=== PATIENT | male | born 1960 | race Caucasian/White ===

== ENCOUNTER 2017-02-17 16:30 | Emergency (ER) | payer OTHER ==
[~2017-02-17] VITALS: Ht 172.7 cm; Wt 71.0 kg
[~2017-02-17 16:30] MED LIST: PRED20 PO; VITA10002 PO; VITATAB25 PO; ZINC30CA PO
[2017-02-17 16:37] VITALS: BP 146/110; PULSE 90; RESP 16; TEMP 99.2; O2SAT 98
== END 2017-02-17 18:13 | disposition left against medical advice (07) ==
LOC: PHED 16:30
DX: R10.9 Unspecified abdominal pain (principal); Z53.21 Procedure and treatment not carried out due to patient leaving prior to being seen by health care provider
CPT/HCPCS: 99281

== ENCOUNTER 2017-04-09 21:10 | Emergency (ER) | payer OTHER ==
[~2017-04-09] VITALS: Ht 172.7 cm; Wt 72.2 kg
[2017-04-09 21:16] VITALS: BP 161/109; PULSE 75; RESP 18; TEMP 97.9; O2SAT 97
[2017-04-09] MEDS ORDERED: VITA10002 PO (21:35)
[2017-04-09] MEDS ORDERED: VITA100064 PO (21:35)
[2017-04-09] MEDS ORDERED: PANTOPRAZOLE SOD 40 MG DELAYED RELEASE TAB PO ONE (21:45)
[2017-04-09] MEDS ORDERED: ALUMINUM/MAGNESIUM/SIMETH 30 ML CUP PO ONE (21:45)
--- NOTE | 2017-04-09 21:50 | PD ---
HPI Chief Complaint: Abdominal Pain Time Seen by Provider: 21:37 Travel History International Travel<30 days: No Contact w/Intl Traveler<30days: No Traveled to known affect area: No History of Present Illness HPI This 56-year-old male is complaining of lower abdominal pain. He has been having extensive GI workup recently. He has some elevation of his BNP to about 12 to 14. Is being followed serially. He apparently has a really large cyst in his liver. Most doctors and told him it is benign and there is nothing to do with a physician really recently told him that it is likely malignant. He has been seeing a local gastroenterologists as well as Dr. Will. In February he had lower abdominal pain and is treated for diverticulitis. He says the only thing the Augmentin for 5 days because he was feeling better. He has had upper and lower endoscopy recently. The upper endoscopy showed gastritis and duodenitis. The lower endoscopy showed a polyp that was removed. He says he been having some burning in his upper chest which is taken Tums and at times does seem to help. He is not aware of fever or chills. He called his GI doctor today and was told he should have his blood work and urine checked PFSH Past Medical History Anxiety: Yes Heart Rhythm Problems: Yes (BRADYCARDIA WITH PAC'S) Cardiovascular Problems: No COPD: Yes Diminished Hearing: No Gastrointestinal Disorders: Yes (COLITIS, IRRITABLE BOWEL, RECTAL BLEEDING, POLYPECTOMY: 2012, BENIGN) Headaches: Yes Heparin Induced Thrombocytopen: No Hypertension: Yes Musculoskeletal: No Neurologic: No Reproductive: No Respiratory: Yes (copd) Immunizations Current: Yes PNEUMOCCOCAL Vaccine (Year): 2 Past Surgical History Abdominal Surgery: Yes (ABDOMINAL HYDROCELE INFANT) Genitourinary Surgery: Yes (RIGHT TESTICULAR TORSION 1980) Other Surgery: Yes (TORTION/HYDROCELE) Social History Alcohol Use: No (RECOVERING ALCOHOLIC: 1984) Tobacco Use: Yes (11/23) Substance Use: No (RECOVERING ADDICT: 1984) Allergies-Medications (Allergen,Severity, Reaction): Coded Allergies: Erythromycin (Verified Adverse Reaction, Intermediate, ABD PAIN, 02/17/17) Reported Meds & Prescriptions Reported Meds & Active Scripts Active Reported Vitamin B-12 (Cyanocobalamin) 1,000 Mcg Tab 1,500 Mcg PO DAILY Vitamin D (Cholecalciferol) 1,000 Unit Tab 1,000 Units PO DAILY Review of Systems General / Constitutional: No: Fever, Chills Eyes: No: Diploplia, Blurred Vision HENT: No: Headaches, Vertigo Cardiovascular: No: Chest Pain or Discomfort, Palpitations Respiratory: No: Cough, Shortness of Breath Gastrointestinal: Positive: Abdominal Pain, No: Nausea, Vomiting, Diarrhea Genitourinary: No: Urgency, Frequency Musculoskeletal: No: Myalgias, Arthralgias Skin: No Rash, No Itching Neurologic: No: Weakness, Dizziness Psychiatric: Positive: Anxiety Hematologic/Lymphatic: No: Easy Bruising Physical Exam Narrative GENERAL: Well-developed male SKIN: Focused skin assessment warm/dry. HEAD: Atraumatic. Normocephalic. EYES: Pupils equal and round. No scleral icterus. No injection or drainage. ENT: No nasal bleeding or discharge. Mucous membranes pink and moist. NECK: Trachea midline. No JVD. CARDIOVASCULAR: Regular rate and rhythm. No murmur appreciated. RESPIRATORY: No accessory muscle use. Clear to auscultation. Breath sounds equal bilaterally. GASTROINTESTINAL: Abdomen soft, there is left lower quadrant tenderness without guarding or rigidity, nondistended. Hepatic and splenic margins not palpable. MUSCULOSKELETAL: No obvious deformities. No clubbing. No cyanosis. No edema. NEUROLOGICAL: Awake and alert. No obvious cranial nerve deficits. Motor grossly within normal limits. Normal speech. PSYCHIATRIC: Anxious mood and affect; insight and judgment normal. Data Data Last Documented VS Vital Signs Date Time Temp Pulse Resp B/P Pulse Ox O2 Delivery O2 Flow Rate FiO2 04/09/17 22:04 72 18 140/92 98 Room Air 04/09/17 21:16 97.9 Orders Complete Blood Count With Diff (04/09/17 21:37) Basic Metabolic Panel (Bmp) (04/09/17 21:37) Urinalysis - C+S If Indicated (04/09/17 21:37) Al-Mag Hy-Si 40-40-4 Mg/Ml Liq (Mag-Al P (04/09/17 21:45) Pantoprazole (Protonix) (04/09/17 21:45) Labs Laboratory Tests Test 04/09/17 21:47 White Blood Count 9.1 TH/MM3 Red Blood Count 4.74 MIL/MM3 Hemoglobin 14.1 GM/DL Hematocrit 42.1 % Mean Corpuscular Volume 88.7 FL Mean Corpuscular Hemoglobin 29.7 PG Mean Corpuscular Hemoglobin 33.4 % Concent Red Cell Distribution Width 13.0 % Platelet Count 225 TH/MM3 Mean Platelet Volume 7.8 FL Neutrophils (%) (Auto) 63.1 % Lymphocytes (%) (Auto) 27.3 % Monocytes (%) (Auto) 6.6 % Eosinophils (%) (Auto) 2.7 % Basophils (%) (Auto) 0.3 % Neutrophils # (Auto) 5.8 TH/MM3 Lymphocytes # (Auto) 2.5 TH/MM3 Monocytes # (Auto) 0.6 TH/MM3 Eosinophils # (Auto) 0.2 TH/MM3 Basophils # (Auto) 0.0 TH/MM3 CBC Comment DIFF FINAL Differential Comment Urine Color YELLOW Urine Turbidity CLEAR Urine pH 6.5 Urine Specific [place] 1.023 Urine Protein TRACE mg/dL Urine Glucose (UA) NEG mg/dL Urine Ketones TRACE mg/dL Urine Occult Blood NEG Urine Nitrite NEG Urine Bilirubin NEG Urine Leukocyte Esterase NEG Urine RBC 0-3 /hpf Microscopic Urinalysis Comment CULT NOT INDICATED Sodium Level 142 MEQ/L Potassium Level 3.5 MEQ/L Chloride Level 106 MEQ/L Carbon Dioxide Level 27.9 MEQ/L Anion Gap 8 MEQ/L Blood Urea Nitrogen 21 MG/DL Creatinine 1.10 MG/DL Estimat Glomerular Filtration 69 ML/MIN Rate Random Glucose 90 MG/DL Calcium Level 9.6 MG/DL [facility] Medical Decision Making Medical Screen Exam Complete: Yes Emergency Medical Condition: Yes Medical Record Reviewed: Yes Differential Diagnosis Differential includes GERD, diverticulitis, diverticulosis, Narrative Course White count is normal. Urine is negative. Patient be placed back on Augmentin for diverticulitis. Diagnosis Primary Impression: Acute diverticulitis Scripts Pantoprazole (Protonix)40 Mg Tab40 Mg PO DAILY #30 TAB Ref 0 Prov:Abelino Brown MD 04/09/17 Amoxicillin-Clavulanate (Augmentin)500-125 mg Exd429 Mg PO Q8H #30 TAB Ref 0 Prov:Abelino Brown MD 04/09/17 Disposition: 01 DISCHARGE HOME Condition: Stable Abelino Brown MD April 09, 2017 21:50
[2017-04-09 21:54] LABS: AUTOMATED NEUTROPHIL # 5.8 TH/MM3 (1.8-7.7); BASOPHIL % 0.3 % (0.0-2.0); EOSINOPHIL # 0.2 TH/MM3 (0-0.4); EOSINOPHIL % 2.7 % (0.0-4.0); HEMATOCRIT 42.1 % (39.0-51.0); HEMO FLAGS DIFF FINAL; LYMPH % 27.3 % (9.0-44.0); LYMPHOCYTE # 2.5 TH/MM3 (1.0-4.8); MEAN CELL VOLUME 88.7 FL (80.0-100.0); MEAN CORPUSCULAR HEMOGLOBIN 29.7 PG (27.0-34.0); MEAN CORPUSCULAR HGB CONC 33.4 % (32.0-36.0); MONO % 6.6 % (0.0-8.0); NEUT % 63.1 % (16.0-70.0); PLATELET COUNT 225 TH/MM3 (150-450); RED BLOOD COUNT 4.74 MIL/MM3 (4.50-5.90); WHITE BLOOD COUNT 9.1 TH/MM3 (4.0-11.0)
[2017-04-09 21:55] LABS: BLOOD, URINE NEG (NEG); GLUCOSE,URINE NEG (NEG); KETONE, URINE TRACE mg/dL (NEG); NITRITE,URINE NEG (NEG); PH, URINE 6.5 (5.0-8.5)
[2017-04-09 21:59] LABS: URINE COLOR YELLOW (YELLW/STRAW)
[2017-04-09 22:01] LABS: COMMENT (UR) CULT NOT INDICATED; CULTURE IF INDICATED CULT NOT INDICATED; RBC, URINE 0-3 /hpf (0-3)
[2017-04-09 22:04] VITALS: BP 140/92; PULSE 72; RESP 18; O2SAT 98
[2017-04-09 22:12] LABS: POTASSIUM 3.5 MEQ/L (3.5-5.1)
[2017-04-09 22:15] LABS: BICARBONATE 27.9 MEQ/L (21.0-32.0)
[2017-04-09] MEDS ORDERED: AUGM500T7 PO (22:27)
[2017-04-09] MEDS ORDERED: PROT40TA PO (22:28)
[2017-04-09] MEDS ORDERED: AMOXICILLIN/CLAVULANATE K 500 MG TAB PO ONE (22:30)
[2017-04-09] MEDS ORDERED: AUGM250S2 PO (22:38)
[2017-04-10] MEDS ORDERED: BENT20TA PO (08:15)
[2017-04-10] MEDS ORDERED: LEVS0.123 PO (10:04)
== END 2017-04-09 22:58 | disposition home or self-care (01) ==
LOC: PHED 21:10
DX: K57.92 Diverticulitis of intestine, part unspecified, without perforation or abscess without bleeding (principal); I10 Essential (primary) hypertension; F17.200 Nicotine dependence, unspecified, uncomplicated; Z86.79 Personal history of other diseases of the circulatory system; Z87.09 Personal history of other diseases of the respiratory system; Z87.19 Personal history of other diseases of the digestive system; Z86.59 Personal history of other mental and behavioral disorders
CPT/HCPCS: 80048; 81001; 85025; 99284

== ENCOUNTER 2017-04-10 08:01 | Emergency (ER) | payer OTHER ==
[~2017-04-10] VITALS: Ht 170.2 cm; Wt 68.5 kg
[~2017-04-10 08:01] MED LIST changes: +AUGM250S2 PO; +AUGM500T7 PO; -PRED20 PO; +PROT40TA PO; +VITA100064 PO; -VITATAB25 PO; -ZINC30CA PO
[2017-04-10 08:03] VITALS: BP 146/93; PULSE 93; RESP 17; TEMP 98.3; O2SAT 98
[2017-04-10] MEDS ORDERED: BENT20TA PO (08:15)
[2017-04-10] MEDS ORDERED: DICYCLOMINE HCL 20 MG/2 ML VIAL IM ONE (08:15)
[2017-04-10] MEDS ORDERED: DIATRIZOATE MEGLUM/DIATRIZOATE SOD 9 ML CUP ONE (08:18)
--- NOTE | 2017-04-10 08:20 | PD ---
HPI Chief Complaint: Abdominal Pain Time Seen by Provider: 08:10 Travel History International Travel<30 days: No Contact w/Intl Traveler<30days: No Traveled to known affect area: No History of Present Illness HPI Patient presents with complaints of left lower abdominal pain. Diagnosed last night as diverticulitis and started on Augmentin as this has worked for him in the past. Reports continued pain. States he talked to his home service consultant who recommended a CT. Patient reports for a CT. Reports a liver mass which is being followed by gastroenterology. Denies any previous abdominal surgeries. Reports loose stools without blood. Denies any nausea vomiting. Recovering alcoholic denies alcohol for 30 years. PFSH Past Medical History Anxiety: Yes Heart Rhythm Problems: Yes (BRADYCARDIA WITH PAC'S) Cardiovascular Problems: No COPD: Yes Diminished Hearing: No Gastrointestinal Disorders: Yes (COLITIS, IRRITABLE BOWEL, RECTAL BLEEDING, POLYPECTOMY: 2012, BENIGN) Headaches: Yes Heparin Induced Thrombocytopen: No Hypertension: Yes Musculoskeletal: No Neurologic: No Reproductive: No Respiratory: Yes (copd) Immunizations Current: Yes PNEUMOCCOCAL Vaccine (Year): 2 ?: Not Past Surgical History Abdominal Surgery: Yes (ABDOMINAL HYDROCELE ) Genitourinary Surgery: Yes (RIGHT TESTICULAR TORSION 1980) Other Surgery: Yes (TORTION/HYDROCELE) Social History Alcohol Use: No (RECOVERING ALCOHOLIC: 1984) Tobacco Use: Yes (11/23 PPD) Substance Use: No (RECOVERING ADDICT: 1984) Allergies-Medications (Allergen,Severity, Reaction): Coded Allergies: Erythromycin (Verified Adverse Reaction, Intermediate, ABD PAIN, 04/10/17) Reported Meds & Prescriptions Reported Meds & Active Scripts Active Augmentin Liq (Amoxicillin-Clavulanate Liq) 250-62.5 Mg/5 Ml Susp 500 Mg PO TID 10 Days 500 mg (10 mL). Substitute the 250-62.5 mg/5 ml susp. for the 500 mg tab for adults having difficulty swallowing. Protonix (Pantoprazole Sodium) 40 Mg Tab 40 Mg PO DAILY Augmentin (Amoxicillin-Clavulanate) 500-125 mg Tab 500 Mg PO Q8H Reported Bentyl (Dicyclomine HCl) 20 Mg Tab 20 Mg PO TID Vitamin B-12 (Cyanocobalamin) 1,000 Mcg Tab 1,500 Mcg PO DAILY Vitamin D (Cholecalciferol) 1,000 Unit Tab 1,000 Units PO DAILY Review of Systems General / Constitutional: No: Fever Eyes: No: Visual changes HENT: No: Headaches Cardiovascular: No: Chest Pain or Discomfort Respiratory: No: Shortness of Breath Gastrointestinal: Positive: Diarrhea, Abdominal Pain Genitourinary: No: Dysuria Musculoskeletal: No: Pain Skin: No Rash Neurologic: No: Weakness Psychiatric: No: Depression Endocrine: No: Polydipsia Hematologic/Lymphatic: No: Easy Bruising Physical Exam Narrative GENERAL: Well-nourished, well-developed patient. SKIN: Focused skin assessment warm/dry. HEAD: Normocephalic. EYES: No scleral icterus. No injection or drainage. NECK: Supple, trachea midline. No JVD or lymphadenopathy. CARDIOVASCULAR: Regular rate and rhythm without murmurs, gallops, or rubs. RESPIRATORY: Breath sounds equal bilaterally. No accessory muscle use. GASTROINTESTINAL: Abdomen soft, nondistended. No hepatosplenomegaly,Left lower inguinal scar noted tenderness and left lower quadrant MUSCULOSKELETAL: No cyanosis, or edema. BACK: Nontender without obvious deformity. No CVA tenderness. Data Data Last Documented VS Vital Signs Date Time Temp Pulse Resp B/P Pulse Ox O2 Delivery O2 Flow Rate FiO2 04/10/17 08:03 98.3 93 17 146/93 98 Orders Dicyclomine Inj (Bentyl Inj) (04/10/17 08:15) Ct Abd/Pel W/O Iv Contrast (04/10/17 ) Oral Contrast - Adult (04/10/17 08:13) Diatrizoate Liq ( Gastroview Liq) (04/10/17 08:18) [facility] Medical Decision Making Medical Screen Exam Complete: Yes Emergency Medical Condition: Yes Differential Diagnosis Colitis, diverticulitis, viral enteritis Narrative Course Last 72 hours Impressions Abdomen/Pelvis CT 04/10/17 0000 Signed Impressions: Service Date/Time: Monday, April 10, 2017 08:46 - CONCLUSION: 1. Acute diverticulitis of the sigmoid colon. No evidence of drainable abscess or free air. 2. Increase in size of right lobe hepatic mass. Features again suggests cyst. Leo Morton MD Assessment and plan discussed with patient at bedside, labs from last night reviewed. Patient declined any pain medication since he is recovering alcoholic. Reports inability to take Cipro or Flagyl. Prescription for Augmentin was provided last night. Diagnosis Primary Impression: Acute diverticulitis Patient Instructions: General Instructions Additional Instructions: Encouraged high-fiber bland BRAT diet. Encouraged good fluid intake. Continue with gastroenterology. Antibiotic as prescribed. Follow-up with PCP symptoms do not improve. Med/Other Pt SpecificInfo: Prescription(s) given Scripts Hyoscyamine (Levsin)0.125 Mg Tab0.125 Mg PO Q4H PRN (diarrhea) #20 TAB Ref 0 Prov:Robinson Banda MD 04/10/17 Disposition: 01 DISCHARGE HOME Condition: Good Robinson Banda MD April 10, 2017 08:20
--- NOTE | 2017-04-10 09:49 | RADHPO ---
EXAM DATE/TIME: 04/10/2017 08:46 [facility] COMPARISON: CT ABDOMEN & PELVIS W/O CONTRAST, November 06, 2013, 9:59. INDICATIONS : Bilateral lower quadrant pain and loose stools for two weeks, worsening for last several days. ORAL CONTRAST: Patient refused oral contrast. RADIATION DOSE: 8.57 CTDIvol (mGy) MEDICAL HISTORY : Diverticulitis. Hepatic cyst. SURGICAL HISTORY : None. ENCOUNTER: Initial ACUITY: 2 weeks PAIN SCALE: 8/10 LOCATION: Bilateral lower quadrant TECHNIQUE: Volumetric scanning of the abdomen and pelvis was performed. Using automated exposure control and ad justment of the mA and/or kV according to patient size, radiation dose was kept as low as reasonably achievable to obtain optimal diagnostic quality images. FINDINGS: LOWER LUNGS: The visualized lower lungs are clear. LIVER: 11.1 cm mass in the posterior right lobe of the liver with features again suggesting a cyst. It hasn' t increased in size from 8.3 cm on prior study of 2012. SPLEEN: Normal size without lesion. PANCREAS: Within normal limits. KIDNEYS: Normal in size and shape. There is no mass, stone, or hydronephrosis. ADRENAL GLANDS: Within normal limits. VASCULAR: There is no aortic aneurysm. BOWEL/MESENTERY: Numerous colonic diverticula are seen. Stranding and hazy opacity as well as wall thickening is seen at the proximal sigmoid colon in the left lower quadrant indicating acute diverticulitis. No evidence of drainable abscess or free air. ABDOMINAL WALL: Within normal limits. RETROPERITONEUM: There is no lymphadenopathy. BLADDER: No wall thickening or mass. REPRODUCTIVE: Within normal limits. INGUINAL: There is no lymphadenopathy or hernia. MUSCULOSKELETAL: Within normal limits for patient age. CONCLUSION: 1. Acute diverticulitis of the sigmoid colon. No evidence of drainable abscess or free air. 2. Increase in size of right lobe hepatic mass. Features again suggests cyst. Leo Morton MD on April 10, 2017 at 9:43 Board Certified Radiologist. This report was verified electronically.
[2017-04-10] MEDS ORDERED: LEVS0.123 PO (10:04)
== END 2017-04-10 10:24 | disposition home or self-care (01) ==
LOC: PHED 08:01
DX: K57.92 Diverticulitis of intestine, part unspecified, without perforation or abscess without bleeding (principal); R00.1 Bradycardia, unspecified; F41.9 Anxiety disorder, unspecified; F17.210 Nicotine dependence, cigarettes, uncomplicated; F19.21 Other psychoactive substance dependence, in remission; J44.9 Chronic obstructive pulmonary disease, unspecified; I10 Essential (primary) hypertension; F10.21 Alcohol dependence, in remission
CPT/HCPCS: 74176; Q9963

== ENCOUNTER 2017-09-13 19:44 | Emergency (ER) | payer SELFPAY ==
[~2017-09-13] VITALS: Ht 170.2 cm; Wt 72.9 kg
[~2017-09-13 19:44] MED LIST changes: +BENT20TA PO; +LEVS0.123 PO
[2017-09-13 19:52] VITALS: BP 175/98; PULSE 76; RESP 16; TEMP 98.5; O2SAT 98
[2017-09-13] MEDS ORDERED: CLON.5 PO (20:59)
[2017-09-13 21:00] VITALS: BP 157/100; PULSE 62; RESP 18; O2SAT 98
--- NOTE | 2017-09-13 21:05 | PD ---
HPI Chief Complaint: Dizziness Time Seen by Provider: 20:53 Travel History International Travel<30 days: No Contact w/Intl Traveler<30days: No Traveled to known affect area: No History of Present Illness HPI 56-year-old male with history of COPD here for evaluation of generalized fatigue , an episode of tachycardia/lightheadedness/dizziness. The patient reports fatigue over the last couple of months. He states that while driving today he felt as though his heart was racing. He has a pulse oximeter and he checked his heart rate with it and noticed it was 130. He then reports that he began to panic and was able to flag down one of our EVACs who checked his vital signs and performed a rhythm strip. The patient denies fevers or recent illness. He denies having chest pain. No history of DVT or PE. Currently he just feels tired. PFSH Past Medical History Anxiety: Yes Heart Rhythm Problems: Yes (BRADYCARDIA WITH PAC'S) Cardiovascular Problems: No COPD: Yes Diminished Hearing: No Gastrointestinal Disorders: Yes (COLITIS, IRRITABLE BOWEL, RECTAL BLEEDING, POLYPECTOMY: 2012, BENIGN) Headaches: Yes Heparin Induced Thrombocytopen: No Hypertension: Yes Musculoskeletal: No Neurologic: No Reproductive: No Respiratory: Yes (copd) Immunizations Current: Yes PNEUMOCCOCAL Vaccine (Year): 2 Past Surgical History Abdominal Surgery: Yes (ABDOMINAL HYDROCELE ) Genitourinary Surgery: Yes (RIGHT TESTICULAR TORSION 1980) Other Surgery: Yes (TORTION/HYDROCELE) Social History Alcohol Use: No (RECOVERING ALCOHOLIC: 1984) Tobacco Use: Yes (2 ) Substance Use: No (RECOVERING ADDICT: 1984) Allergies-Medications (Allergen,Severity, Reaction): Coded Allergies: erythromycin base (Unverified Adverse Reaction, Intermediate, ABD PAIN, ) Reported Meds & Prescriptions Reported Meds & Active Scripts Active Reported Klonopin (Clonazepam) 0.5 Mg Tab 0.5 Mg PO TID Review of Systems Except as stated in HPI: all other systems reviewed are Neg Physical Exam Narrative GENERAL: Well-developed, well-nourished, comfortable, no apparent distress. SKIN: Focused skin assessment warm/dry. No pallor. HEAD: Atraumatic. Normocephalic. EYES: Pupils equal and round. No scleral icterus. No injection or drainage. ENT: Mucous membranes pink and moist. NECK: Trachea midline. No JVD. CARDIOVASCULAR: Regular rate and rhythm. RESPIRATORY: No accessory muscle use. Clear to auscultation. Breath sounds equal bilaterally. GASTROINTESTINAL: Abdomen soft, non-tender, nondistended. MUSCULOSKELETAL: No obvious deformities. No clubbing. No cyanosis. NEUROLOGICAL: Awake and alert. No obvious cranial nerve deficits. Motor grossly within normal limits. Normal speech. PSYCHIATRIC: Appropriate mood and affect; insight and judgment normal. Data Data Last Documented VS Vital Signs Date Time Temp Pulse Resp B/P (MAP) Pulse Ox O2 Delivery O2 Flow Rate FiO2 09/13/17 21:07 98 09/13/17 21:00 62 18 Room Air 09/13/17 19:52 98.5 Orders Orders Complete Blood Count With Diff (09/13/17:02) Comprehensive Metabolic Panel (09/13/17:) Urinalysis - C+S If Indicated (09/13/17 21:) Sodium Chloride 0.9% Flush (Ns Flush) (09/13/17 21:15) Electrocardiogram (09/13/17:) Thyroid Stimulating Hormone (09/13/17 21:) MDM Medical Decision Making Medical Screen Exam Complete: Yes Emergency Medical Condition: Yes Medical Record Reviewed: Yes Interpretation(s) EKG: Sinus, rate 58, normal axis, moderate intraventricular conduction delay, no acute ischemic abnormality, unchanged from prior. Differential Diagnosis Palpitations, sinus tachycardia, anemia, metabolic abnormality, panic attack Narrative Course Vital signs show heart rate 62, blood pressure 157/100, pulse ox 98% on room air , oral temp of 98.5F. 10:00 PM: The patient decides he does not want to have any blood work because he is afraid of being charged. He states he is feeling a lot better and will follow up with his primary care physician when his insurance kicks back in on September 22. His symptoms sound like a panic attack, however he understands that it could be something else and I am unable to give him a diagnosis without performing further testing. He was informed on when to return to the emergency department. He verbalizes understanding and agreement with plan. Diagnosis Primary Impression: Tachycardia Referrals: Primary Care Physician 3 days Additional Instructions: Follow-up with a primary care physician this week. Return to the emergency department for worsening symptoms or any other concerns. Disposition: 01 DISCHARGE HOME Condition: Stable Carvajal,Geovany N MD Sep 13, 2017 21:05
[2017-09-13 21:07] VITALS: O2SAT 98
[2017-09-13] MEDS ORDERED: SODIUM CHLORIDE 0.9% FLUSH 10 ML FLUSH IV FLUSH PRN (21:15)
[2017-09-13 22:16] VITALS: BP 145/89; PULSE 66; RESP 18; O2SAT 97
--- NOTE | 2017-09-15 21:28 | EKG ---
Date Performed: 09/13/2017 Time Performed: 21:07:56 PTAGE: 56 years EKG: SINUS BRADYCARDIA BORDERLINE LEFT AXIS DEVIATION MODERATE INTRAVENTRICULAR CONDUCTION DELAY BORDERLINE ECG PREVIOUS TRACING : 09/04/2016 00.55 Compared to prior tracing no significant change DOCTOR: Tee Samano Interpretating Date/Time 09/15/2017 21:26:57
== END 2017-09-13 22:18 | disposition home or self-care (01) ==
LOC: PHED 19:44
DX: R00.0 Tachycardia, unspecified (principal); R53.83 Other fatigue; R42 Dizziness and giddiness; R94.31 Abnormal electrocardiogram [ECG] [EKG]; I10 Essential (primary) hypertension; F17.200 Nicotine dependence, unspecified, uncomplicated; Z86.59 Personal history of other mental and behavioral disorders; Z86.79 Personal history of other diseases of the circulatory system; Z87.09 Personal history of other diseases of the respiratory system; Z87.19 Personal history of other diseases of the digestive system
CPT/HCPCS: 93005; 99283

== ENCOUNTER 2018-04-20 08:14 | Emergency (ER) | payer OTHER ==
[~2018-04-20] VITALS: Ht 170.2 cm; Wt 72.0 kg
[~2018-04-20 08:14] MED LIST changes: -AUGM250S2 PO; -AUGM500T7 PO; -BENT20TA PO; +CLON.5 PO; -LEVS0.123 PO; -PROT40TA PO; -VITA10002 PO; -VITA100064 PO
[2018-04-20 08:17] VITALS: BP 160/95; PULSE 88; RESP 16; TEMP 98.6; O2SAT 97
--- NOTE | 2018-04-20 08:39 | PD ---
HPI Chief Complaint: Abdominal Pain Time Seen by Provider: 08:38 Travel History International Travel<30 days: No Contact w/Intl Traveler<30days: No Traveled to known affect area: No History of Present Illness HPI 57-year-old male came to the emergency room with history of lower abdominal pain that is cramping and spasming for past 2 days. Patient says he does have some discomfort for past 3-4 weeks but for past 2 days it got worse. He has history of diverticulitis and things he might be having another episode of it. Patient returned from a cruise on March 21 and 4-5 days after that the symptoms started. Currently he looks quite uncomfortable. Vital signs otherwise stable. He has GI specialist Dr. Thorpe that he sees and he went to see her 4-5 days ago but at that time his symptoms had subsided and hence nothing much was done about it. He has been nauseous but no vomiting. He has had diarrhea as well. [facility] Past Medical History Narrative Medical List of his past medical, surgical, social and family history is reviewed from the nursing note. Arthritis: No Asthma: No Autoimmune Disease: No Blood Disorders: No Anxiety: Yes Heart Rhythm Problems: Yes (BRADYCARDIA WITH PAC'S, RBBB) Cancer: No Cardiac Catheterization: No Cardiovascular Problems: No High Cholesterol: No Chemotherapy: No Chest Pain: No Congestive Heart Failure: No COPD: Yes Cerebrovascular Accident: No Diabetes: No Diminished Hearing: No Gastrointestinal Disorders: Yes (COLITIS, IRRITABLE BOWEL, RECTAL BLEEDING, POLYPECTOMY: 2013, BENIGN, UC) GERD: No Glaucoma: No Genitourinary: No Headaches: Yes Hepatitis: No Hiatal Hernia: No Heparin Induced Thrombocytopen: No Hypertension: Yes Kidney Stones: No Musculoskeletal: No Neurologic: No Psychiatric: No Reproductive: No Respiratory: Yes (copd) Immunizations Current: Yes Myocardial Infarction: No Radiation Therapy: No Renal Failure: No Seizures: No Sleep Apnea: No Thyroid Disease: No Ulcer: No Tetanus Vaccination: < 5 Years Influenza Vaccination: Yes PNEUMOCCOCAL Vaccine (Year): 2 Past Surgical History Abdominal Surgery: Yes (ABDOMINAL HYDROCELE INFANT) AICD: No Coronary Artery Bypass Graft: No Genitourinary Surgery: Yes (RIGHT TESTICULAR TORSION 1980) Pacemaker: No Thoracic Surgery: No Other Surgery: Yes (TORTION/HYDROCELE) Social History Alcohol Use: No (RECOVERING ALCOHOLIC: 1984) Tobacco Use: Yes (1/2 PPD) Substance Use: No (RECOVERING ADDICT: 1984) Allergies-Medications (Allergen,Severity, Reaction): Coded Allergies: erythromycin base (Unverified Adverse Reaction, Intermediate, ABD PAIN, ) Uncoded Allergies: no narcotics (Adverse Reaction, Unknown, 04/20/18) states recovery Comments List of his allergies reviewed from the nursing note. Reported Meds & Prescriptions Reported Meds & Active Scripts Active Augmentin Liq (Amoxicillin-Clavulanate Liq) 250-62.5 Mg/5 Ml Susp 500 Mg PO BID 10 Days 500 mg (10 mL). Substitute the 250-62.5 mg/5 ml susp. for the 500 mg tab for adults having difficulty swallowing. Flagyl (Metronidazole) 250 Mg Tab 250 Mg PO TID 10 Days Ciprofloxacin (Ciprofloxacin HCl) 500 Mg Tab 500 Mg PO BID 10 Days Narrative Medication List of his home medications reviewed from the nursing note. Review of Systems Except as stated in HPI: all other systems reviewed are Neg Gastrointestinal: Positive: Diarrhea, Abdominal Pain Physical Exam Narrative GENERAL: Awake, alert, anxious, significant distress SKIN: Focused skin assessment warm/dry. HEAD: Atraumatic. Normocephalic. EYES: Pupils equal and round. No scleral icterus. No injection or drainage. ENT: No nasal bleeding or discharge. Mucous membranes pink and moist. NECK: Trachea midline. No JVD. CARDIOVASCULAR: Regular rate and rhythm. No murmur appreciated. RESPIRATORY: No accessory muscle use. Clear to auscultation. Breath sounds equal bilaterally. GASTROINTESTINAL: Abdomen soft, tender in bilateral lower quadrant, nondistended. Hepatic and splenic margins not palpable. MUSCULOSKELETAL: No obvious deformities. No clubbing. No cyanosis. No edema. NEUROLOGICAL: Awake and alert. No obvious cranial nerve deficits. Motor grossly within normal limits. Normal speech. PSYCHIATRIC: Appropriate mood and affect; insight and judgment normal. Data Data Last Documented VS Vital Signs Date Time Temp Pulse Resp B/P (MAP) Pulse Ox O2 Delivery O2 Flow Rate FiO2 04/20/18 11:00 04/20/18 10:00 77 18 98 Room Air 04/20/18 08:17 98.6 Orders Orders Complete Blood Count With Diff (04/20/18 08:50) Comprehensive Metabolic Panel (04/20/18 08:50) Lipase (04/20/18 08:50) Urinalysis - C+S If Indicated (04/20/18 08:50) Ct Abd/Pel W/O Iv Contrast (04/20/18 08:50) Iv Access Insert/Monitor (04/20/18 08:50) Ecg Monitoring (04/20/18 08:50) Oximetry (04/20/18 08:50) Ondansetron Inj (Zofran Inj) (04/20/18 09:00) Sodium Chlor 0.9% 1000 Ml Inj (Ns 1000 M (04/20/18 08:50) Sodium Chloride 0.9% Flush (Ns Flush) (04/20/18 09:00) Ketorolac Inj (Toradol Inj) (04/20/18 09:00) Dicyclomine (Bentyl) (04/20/18 09:00) Ciprofloxacin 400 Mg Premix (Cipro 400 M (04/20/18 09:45) Metronidazole 500 Mg Inj (Flagyl 500 Mg (04/20/18 09:45) Blood Culture (04/20/18 09:38) Labs Laboratory Tests Test 04/20/18 09:00 04/20/18 09:15 White Blood Count 10.4 TH/MM3 Red Blood Count 4.88 MIL/MM3 Hemoglobin 15.0 GM/DL Hematocrit 43.1 % Mean Corpuscular Volume 88.2 FL Mean Corpuscular Hemoglobin 30.8 PG Mean Corpuscular Hemoglobin Concent 34.9 % Red Cell Distribution Width 12.8 % Platelet Count 215 TH/MM3 Mean Platelet Volume 8.3 FL Neutrophils (%) (Auto) 74.9 % Lymphocytes (%) (Auto) 16.0 % Monocytes (%) (Auto) 6.3 % Eosinophils (%) (Auto) 1.5 % Basophils (%) (Auto) 1.3 % Neutrophils # (Auto) 7.7 TH/MM3 Lymphocytes # (Auto) 1.7 TH/MM3 Monocytes # (Auto) 0.7 TH/MM3 Eosinophils # (Auto) 0.2 TH/MM3 Basophils # (Auto) 0.1 TH/MM3 CBC Comment DIFF FINAL Differential Comment Blood Urea Nitrogen 21 MG/DL Creatinine 1.10 MG/DL Random Glucose 96 MG/DL Total Protein 7.2 GM/DL Albumin 3.9 GM/DL Calcium Level 9.1 MG/DL Alkaline Phosphatase 105 U/L Aspartate Amino Transf (AST/SGOT) 15 U/L Alanine Aminotransferase (ALT/SGPT) 12 U/L Total Bilirubin 0.6 MG/DL Sodium Level 140 MEQ/L Potassium Level 3.9 MEQ/L Chloride Level 109 MEQ/L Carbon Dioxide Level 22.4 MEQ/L Anion Gap 9 MEQ/L Estimat Glomerular Filtration Rate 69 ML/MIN Lipase 230 U/L Urine Collection Type CLEAN CATCH Urine Color YELLOW Urine Turbidity CLEAR Urine pH 5.5 Urine Specific [place] 1.025 Urine Protein NEG mg/dL Urine Glucose (UA) NEG mg/dL Urine Ketones 15 mg/dL Urine Occult Blood NEG Urine Nitrite NEG Urine Bilirubin NEGATIVE Urine Urobilinogen 0.2 MG/DL Urine Leukocyte Esterase NEGATIVE Urine RBC 0-3 /hpf Urine Squamous Epithelial Cells 0-5 /hpf Microscopic Urinalysis Comment CULT NOT INDICATED MDM Medical Decision Making Medical Screen Exam Complete: Yes Emergency Medical Condition: Yes Medical Record Reviewed: Yes Differential Diagnosis Acute diverticulitis, UTI, abdominal pain NOS Narrative Course 10:03 AM blood test results are back and within acceptable limit. CT scan shows persistent colitis with diverticulitis with no worsening when compared to previous CT. No history of perforation or abscess. Patient is getting IV ciprofloxacin and Flagyl. I will discharge him home on p.o. prescription and have him follow-up with his GI specialist. 11:12 AM was told by the nurse that the patient did not want Cipro or Flagyl IV and refused it. He also asked me if I can change the prescription for Cipro and Flagyl to Augmentin liquid form because that is what worked for him best last time. Apparently he has oral candidiasis with p.o. Flagyl and Cipro gives an ankle pain. I have given him a prescription patient will be discharged home. 12:30 PM patient wanted to talk to me and I went in the room and he said that he could not take Cipro or Flagyl since it does not suit him even though it was not listed as allergy. He asked me to change it to Augmentin since it has worked in the past and I have done that. Patient will be gone. Procedures EKG Prior to Arrival: No Diagnosis Primary Impression: Acute diverticulitis Additional Impression: Abdominal pain Qualified Codes: R10.30 - Lower abdominal pain, unspecified Referrals: Primary Care Physician 3 days Additional Instructions: Please return to the ER if the condition worsens or any other new concerns. Take the medication as per the prescription direction. Eat clear liquid diet for the next 2-3 days. Follow-up with your GI specialist. Med/Other Pt SpecificInfo: Prescription(s) given Scripts Amoxicillin-Clavulanate Liq (Augmentin Liq) 250-62.5 Mg/5 Ml Susp 500 MG PO BID for Infection for 10 Days, #200 ML 0 Refills 500 mg (10 mL). Substitute the 250-62.5 mg/5 ml susp. for the 500 mg tab for adults having difficulty swallowing. Prov: Franki Freire MD 04/20/18 Metronidazole (Flagyl) 250 Mg Tab 250 MG PO TID for Infection for 10 Days, TAB 0 Refills Prov: Franki Freire MD 04/20/18 Ciprofloxacin (Ciprofloxacin) 500 Mg Tab 500 MG PO BID for Infection for 10 Days, #20 TAB 0 Refills Prov: Franki Freire MD 04/20/18 Disposition: 01 DISCHARGE HOME Condition: Stable Franki Freire MD April 20, 2018 08:39
[2018-04-20] MEDS ORDERED: SODIUM CHLOR 0.9% 1000 ML INJ 1,000 ML IV SCH (08:50)
[2018-04-20 09:00] VITALS: O2SAT 97
[2018-04-20] MEDS ORDERED: SODIUM CHLORIDE 0.9% FLUSH 10 ML FLUSH IV FLUSH PRN (09:00)
[2018-04-20] MEDS ORDERED: ONDANSETRON HCL 4 MG/2 ML VIAL IVP ONE (09:00)
[2018-04-20] MEDS ORDERED: KETOROLAC TROMETHAMINE 30 MG/ML (IVP) VIAL IVP ONE (09:00)
[2018-04-20] MEDS ORDERED: DICYCLOMINE HCL 10 MG CAP PO ONE (09:00)
[2018-04-20 09:17] LABS: AUTOMATED NEUTROPHIL # 7.7 TH/MM3 (1.8-7.7); BASOPHIL # 0.1 TH/MM3 (0-0.2); BASOPHIL % 1.3 % (0.0-2.0); EOSINOPHIL # 0.2 TH/MM3 (0-0.4); EOSINOPHIL % 1.5 % (0.0-4.0); HEMATOCRIT 43.1 % (39.0-51.0); LYMPHOCYTE # 1.7 TH/MM3 (1.0-4.8); MEAN CELL VOLUME 88.2 FL (80.0-100.0); MEAN CORPUSCULAR HEMOGLOBIN 30.8 PG (27.0-34.0); MEAN CORPUSCULAR HGB CONC 34.9 % (32.0-36.0); MEAN PLATELET VOLUME 8.3 FL (7.0-11.0); MONO % 6.3 % (0.0-8.0); MONOCYTE # 0.7 TH/MM3 (0-0.9); NEUT % 74.9 % (16.0-70.0); PLATELET COUNT 215 TH/MM3 (150-450); RED BLOOD COUNT 4.88 MIL/MM3 (4.50-5.90); RED CELL DISTRIBUTION WIDTH 12.8 % (11.6-17.2); WHITE BLOOD COUNT 10.4 TH/MM3 (4.0-11.0)
--- NOTE | 2018-04-20 09:33 | RADRPT ---
EXAM DATE: 04/20/2018 9:14 AM EDT AGE/SEX: 57 years / Male INDICATIONS: Lower abdominal pain and cramping since yesterday. Recent acute diverticulitis in the s igmoid colon 10 days ago. CLINICAL DATA: This is the patient's initial encounter. Patient reports that signs and symptoms have been present for 1 day and indicates a pain score of 7/10. MEDICAL/SURGICAL HISTORY: Chronic obstructive pulmonary disease. Cardiovascular disease. Dive rticulitis. Colitis. Hypertension. Liver cyst. . Testicular torsion. Abdominal hydrocele. RADIATION DOSE: 9.91 CTDI (mGy) COMPARISON: [facility], CT ABDOMEN & PELVIS W/O CONTRAST, 04/10/2017. . TECHNIQUE: Multiple contiguous axial images were obtained through the abdomen. Images were obtained using multiple row detector helical technique. Using dose reduction techniques, radiation dose was ke pt as low as reasonably achievable to obtain optimal diagnostic quality images. FINDINGS: Lower Lungs: The visualized lower lungs are clear. Liver: The liver has a homogeneous density with a large stable cystic structure again noted in the ri ght lobe of the liver consistent with a large simple cyst. The gallbladder remains unremarkable. Ther e is no dilation of the biliary tree. Spleen: Homogeneous density without enlargement. Pancreas: Unremarkable without mass or calcification. Kidneys: Normal in size and shape. No evidence of mass or hydronephrosis. Adrenal Glands: Unremarkable. Aorta: The aorta and proximal iliac vessels are grossly unremarkable without aneurysmal dilation. Bowel/Mesentery: No oral contrast was given limiting the sensitivity of the exam. There is wall thic kening and mild inflammatory change again noted involving the sigmoid colon with multiple diverticuli . There is increased soft tissue density in the adjacent mesentery with no free air or drainable flui d collection. The bowel gas pattern is nonobstructive. There is a normal appendix. Abdominal Wall: Intact. Retroperitoneum: No evidence of adenopathy in the retrocrural, para-aortic, or deep pelvic regions. Bladder: Contours are smooth. Reproductive Organs: No abnormal masses or calcifications seen. Inguinal: The inguinal region is unremarkable without evidence of adenopathy. Bony Structures: Unremarkable. CONCLUSION: 1. Thickening and inflammatory change again noted involving the sigmoid colon with multiple divertic ant characteristic of acute diverticulitis. This is not significantly changed from the prior study. 2. No free air or fluid. 3. Large cystic lesion again noted in the right lobe of the liver without significant change. Electronically signed by: Douglas Santiago MD 04/20/2018 9:31 AM EDT
[2018-04-20] MEDS ORDERED: CIPROFLOXACIN 400 MG PREMIX 200 ML IV ONE (09:45)
[2018-04-20] MEDS ORDERED: metroNIDAZOLE 500 MG INJ 100 ML IV ONE (09:45)
[2018-04-20 09:50] LABS: CALCIUM 9.1 MG/DL (8.5-10.1)
[2018-04-20 09:51] LABS: ALBUMIN 3.9 GM/DL (3.4-5.0); BICARBONATE 22.4 MEQ/L (21.0-32.0); GLUCOSE,RANDOM 96 MG/DL (74-106)
[2018-04-20 09:52] LABS: PH, URINE 5.5 (5.0-8.5); URINE COLOR YELLOW (YELLW/STRAW)
[2018-04-20 09:53] LABS: BILIRUBIN, URINE NEGATIVE (NEG); BLOOD, URINE NEG (NEG); GLUCOSE,URINE NEG (NEG); KETONE, URINE 15 mg/dL (NEG); NITRITE,URINE NEG (NEG); RBC, URINE 0-3 /hpf (0-3); SQUAMOUS EPITHELIAL CELL URINE 0-5 /hpf (0-5); URINE LEUKOCYTE ESTERASE NEGATIVE (NEG)
[2018-04-20 09:54] LABS: AST (GOT) 15 U/L (15-37); GLOMERULAR FILTRATION RATE 69 ML/MIN (>89)
[2018-04-20 09:56] LABS: TOTAL PROTEIN 7.2 GM/DL (6.4-8.2)
[2018-04-20 09:57] LABS: ALKALINE PHOSPHATASE 105 U/L (45-117)
[2018-04-20 10:00] VITALS: BP 166/89; PULSE 77; RESP 18; O2SAT 98
[2018-04-20 10:00] LABS: BLOOD UREA NITROGEN 21 MG/DL (7-18); CHLORIDE 109 MEQ/L (98-107); SODIUM (NA) 140 MEQ/L (136-145)
[2018-04-20 10:01] LABS: ALT (GPT) 12 U/L (12-78)
[2018-04-20] MEDS ORDERED: CIPR500T2 PO (10:05)
[2018-04-20] MEDS ORDERED: METR250 PO (10:05)
[2018-04-20 10:07] LABS: TOTAL BILIRUBIN ADULT 0.6 MG/DL (0.2-1.0)
[2018-04-20] MEDS ORDERED: AUGM250S2 PO (11:11)
== END 2018-04-20 11:20 | disposition home or self-care (01) ==
LOC: PHED 08:14
DX: K57.92 Diverticulitis of intestine, part unspecified, without perforation or abscess without bleeding (principal); J44.9 Chronic obstructive pulmonary disease, unspecified; I10 Essential (primary) hypertension; F41.9 Anxiety disorder, unspecified; F17.200 Nicotine dependence, unspecified, uncomplicated; Z79.899 Other long term (current) drug therapy; Z88.1 Allergy status to other antibiotic agents; Z87.19 Personal history of other diseases of the digestive system
CPT/HCPCS: 74176; 80053; 81001; 83690; 85025; 87040; 96374; 99284; J0744; J7030